=== PATIENT | female | born 1950 | race Caucasian/White ===

== ENCOUNTER → 2017-07-16 | Outpatient (CLI) | payer MEDICARE, OTHER | END | disposition home or self-care (01) | LOC: CFH 14:45 | PROVIDERS: ATTEND Internal Medicine Cardiovascular Disease | DX: R07.9 Chest pain, unspecified (principal); R00.2 Palpitations | CPT/HCPCS: 93306 ==

== ENCOUNTER → 2017-09-01 | Outpatient (CLI) | payer MEDICARE, OTHER | LOC: CFH 09:32 | PROVIDERS: ATTEND Family Medicine | DX: Z13.820 Encounter for screening for osteoporosis (principal); Z78.0 Asymptomatic menopausal state | CPT/HCPCS: 77080 ==

== ENCOUNTER → 2019-05-12 | Outpatient (CLI) | payer MEDICARE, OTHER ==
[~2019-05-12] MED LIST: ACET325T14 PO; CITA20TA9 PO; DOXY25TA45 PO
== END | disposition home or self-care (01) ==
LOC: CFH 10:13
PROVIDERS: ATTEND Internal Medicine
DX: M85.80 Other specified disorders of bone density and structure, unspecified site (principal); C50.812 Malignant neoplasm of overlapping sites of left female breast
CPT/HCPCS: 77080

== ENCOUNTER 2019-05-30 09:20 | Outpatient (CLI) | payer MEDICARE, OTHER ==
[2019-05-30] MEDS ORDERED: IBUP-1221 PO (10:10)
[2019-05-30 10:17] LABS: BASOPHILS # (AUTO) 0.03 x10^3/uL (0-0.1); BASOPHILS % (AUTO) 0 % (0-1); EOSINOPHILS # (AUTO) 0.49 x10^3/uL (0-0.4); EOSINOPHILS % (AUTO) 6 % (1-7); LYMPHOCYTES # (AUTO) 1.72 x10^3/uL (1-3.4); LYMPHOCYTES % (AUTO) 22 % (22-44); MD NO; MEAN CORPUSCULAR HEMOGLOBIN 31.3 pg (27.0-34.8); MEAN CORPUSCULAR HGB CONC 33.4 g/dL (32.4-35.8); MEAN CORPUSCULAR VOLUME 93.7 fL (80-100); MEAN PLATELET VOLUME 7.7 fL (7.4-10.4); MONOCYTES # (AUTO) 0.52 x10^3/uL (0.2-0.8); MONOCYTES % (AUTO) 7 % (2-9); NEUTROPHILS # (AUTO) 5.25 x10^3/uL (1.8-6.8); NEUTROPHILS % (AUTO) 66 % (42-75); PLATELET COUNT 208 x10^3/uL (130-400); RED CELL DISTRIBUTION WIDTH 13.4 % (9.6-15.2)
== END 2019-05-30 23:59 | disposition home or self-care (01) ==
LOC: STAR 09:20
PROVIDERS: ATTEND Plastic Surgery
DX: Z01.818 Encounter for other preprocedural examination (principal); C50.412 Malignant neoplasm of upper-outer quadrant of left female breast
CPT/HCPCS: 36415; 85025

== ENCOUNTER 2019-06-06 13:37 | Day surgery (SDC) | payer MEDICARE, OTHER ==
[~2019-06-06] VITALS: Ht 167.6 cm; Wt 99.2 kg
[~2019-06-06 13:37] MED LIST changes: +IBUP-1221 PO
[2019-06-06] MEDS ORDERED: BACITRACIN 50,000 UNIT ONE (13:47)
[2019-06-06] MEDS ORDERED: GENTAMICIN 80 MG/2 ML ONE (13:47)
[2019-06-06] MEDS ORDERED: CEFAZOLIN 1,000 MG ONE ×2 (13:47→15:55)
[2019-06-06] MEDS ORDERED: BUPIVACAINE/PF 0.5% ONE (13:47)
[2019-06-06] MEDS ORDERED: EPINEPHRINE 1 MG/ML, 1ML ONE (13:47)
[2019-06-06] MEDS ORDERED: LACTATED RINGERS 1,000 ML IV SCH ×2 (13:50→18:30)
[2019-06-06 13:54] VITALS: BP 141/84
[2019-06-06] MEDS ORDERED: MIDAZOLAM 1 MG/ML, 2ML ONE (13:56)
[2019-06-06] MEDS ORDERED: FENTANYL PF 250 MCG/5ML ONE (13:56)
[2019-06-06] MEDS ORDERED: SCOPOLAMINE PATCH, 1.5MG PATCH.TD72 TD ONE (14:00)
[2019-06-06] MEDS ORDERED: DIAZEPAM 5 MG TABLET PO ONE (14:00)
[2019-06-06] MEDS ORDERED: GABAPENTIN 300 MG CAPSULE PO ONE (14:00)
[2019-06-06] MEDS ORDERED: ACETAMINOPHEN 500 MG TABLET PO ONE (14:00)
[2019-06-06] MEDS ORDERED: PHENYLEPHRINE 10 MG/ML ONE (14:42)
[2019-06-06] MEDS ORDERED: ALBUTEROL/IPRATROPIUM 2.5MG/0.5MG, 3 ML NPPB PRN (15:30)
[2019-06-06] MEDS ORDERED: OXYcodone 5 MG/5 ML ORAL.SOL UDC PO PRN (15:30)
[2019-06-06] MEDS ORDERED: PROMETHAZINE 25 MG/ML, 1ML IV PRN (15:30)
[2019-06-06] MEDS ORDERED: hydrALAzine 20 MG/ML, 1ML IV PRN (15:30)
[2019-06-06] MEDS ORDERED: METOPROLOL 1 MG/ML, 5ML IV PRN (15:30)
[2019-06-06] MEDS ORDERED: LORazepam 2 MG/ML, 1ML IVPush PRN (15:30)
[2019-06-06] MEDS ORDERED: DEXAMETHASONE 4 MG/ML, 1ML ONE (15:55)
[2019-06-06] MEDS ORDERED: GLYCOPYRROLATE 0.2MG/1ML, 5ML ONE (15:55)
[2019-06-06] MEDS ORDERED: ROCURONIUM 10MG/ML,5ML ONE (15:55)
[2019-06-06] MEDS ORDERED: PROPOFOL 10 MG/ML, 20ML ONE (15:55)
[2019-06-06] MEDS ORDERED: NEOSTIGMINE 1 MG/ML, 10ML ONE (15:55)
[2019-06-06] MEDS ORDERED: ONDANSETRON 2MG/ML, 2ML ONE (15:55)
[2019-06-06] MEDS ORDERED: FENTANYL PF 100 MCG/2ML ONE ×2 (16:28→17:27)
[2019-06-06] MEDS ORDERED: OXYcodone 5 MG/5 ML ORAL.SOL UDC ONE (16:28)
[2019-06-06] MEDS: FENTANYL PF 100 MCG/2ML IV PRN ×3 (16:29→17:34)
[2019-06-06] MEDS ORDERED: HYDROmorphone 1 MG/ML, 1ML INJ ONE ×2 (16:48→17:27)
[2019-06-06] MEDS: HYDROmorphone 2 MG/ML, 1ML IVPush PRN ×2 (16:51→17:15)
[2019-06-06] MEDS ORDERED: hydrALAzine 20 MG/ML, 1ML ONE (16:59)
[2019-06-06] MEDS ORDERED: MORPHINE SULFATE 4 MG/ML, 1ML IVPush PRN (18:30)
[2019-06-06] MEDS ORDERED: HYDROcodone/APAP 5/325 TABLET PO PRN (19:00)
[2019-06-06] MEDS ORDERED: IBUPROFEN 200 MG TABLET PO PRN (19:00)
[2019-06-06] MEDS ORDERED: CITALOPRAM 20 MG TABLET PO SCH (21:00)
== END 2019-06-06 21:00 | disposition home or self-care (01) ==
LOC: OR 13:37 → 4NE 18:13 → OR 21:00
PROVIDERS: ATTEND Plastic Surgery
DX: N65.1 Disproportion of reconstructed breast (principal); E66.9 Obesity, unspecified; F32.9 Major depressive disorder, single episode, unspecified; Z68.34 Body mass index [BMI] 34.0-34.9, adult; Z79.899 Other long term (current) drug therapy; Z85.3 Personal history of malignant neoplasm of breast; Z90.12 Acquired absence of left breast and nipple; Z90.710 Acquired absence of both cervix and uterus
CPT/HCPCS: 11970; 19318; 19366; 88305; C1729; C1789; J0171; J0360; J0690; J1100; J1170; J1580; J2250; J2370; J2405; J2704; J2710; J3010; J7120; G0378

== ENCOUNTER 2019-09-08 08:19 | Outpatient (CLI) | payer MEDICARE, OTHER | END 2019-09-08 23:59 | disposition home or self-care (01) | LOC: ROC 08:19 | PROVIDERS: ATTEND Radiology Radiation Oncology | DX: C50.412 Malignant neoplasm of upper-outer quadrant of left female breast (principal) | CPT/HCPCS: G0463 ==

== ENCOUNTER 2020-01-15 07:31 | Outpatient (CLI) | payer MEDICARE, OTHER | END 2020-01-15 23:59 | disposition home or self-care (01) | LOC: ROC 07:31 | PROVIDERS: ATTEND Radiology Radiation Oncology | DX: Z02.9 Encounter for administrative examinations, unspecified (principal) ==

== ENCOUNTER 2020-01-19 07:18 | Outpatient (CLI) | payer MEDICARE, OTHER | END 2020-01-19 23:59 | disposition home or self-care (01) | LOC: ROC 07:18 | PROVIDERS: ATTEND Radiology Radiation Oncology | DX: C50.412 Malignant neoplasm of upper-outer quadrant of left female breast (principal) | CPT/HCPCS: G2012 ==

== ENCOUNTER → 2020-05-17 | Outpatient (CLI) | payer MEDICARE, OTHER | END | disposition home or self-care (01) | LOC: ROC 11:05 | PROVIDERS: ATTEND Radiology Radiation Oncology | DX: Z08 Encounter for follow-up examination after completed treatment for malignant neoplasm (principal); Z85.3 Personal history of malignant neoplasm of breast | CPT/HCPCS: G2012 ==